=== PATIENT | male | born 1940 | race Caucasian/White ===

== ENCOUNTER 2022-08-10 20:03 | Emergency (ER) | payer MEDICARE, OTHER ==
[2022-08-10 20:13] VITALS: BP 134/77
[2022-08-10] MEDS ORDERED: NIRMATRELVIR/RITONAVIR PREPACK PO STA (20:24)
--- NOTE | 2022-08-10 20:25 | ED Physician Documentation ---
PD HPI URI - Stated complaint Stated Complaint: COVID+ RESP - Chief complaint Chief Complaint: Resp - History obtained from History obtained from: Patient - Additional information Additional information: 82-year-old gentleman with history of hypercholesterolemia, atrial fibrillation on a DOAC, and diabetes developed symptomatic COVID today with chills, body aches, and sore throat. He has no shortness of breath. He has had COVID before. He requests paxlovid. PD PAST MEDICAL HISTORY - Past Medical History Past Medical History: Yes Cardiovascular: Congestive heart failure, Atrial fibrillation Respiratory: COPD - Past Surgical History Past Surgical History: Yes General: Cholecystectomy, Hiatal hernia repair - Present Medications Home Medications: Ambulatory Orders Medication Instructions Recorded Confirmed Apixaban [Eliquis] 08/10/22 Empagliflozin [Jardiance] 10 mg PO 08/10/22 Febuxostat [Uloric] 40 mg PO 08/10/22 Simvastatin [Zocor] 08/10/22 nadoloL [Corgard] 40 mg PO 08/10/22 - Allergies Allergies/Adverse Reactions: Allergies Allergy/AdvReac Type Severity Reaction Status Date / Time Iodinated Contrast Media Allergy Rash Verified 08/10/22 20:14 - Social History Does the pt smoke?: No Smoking Status: Never smoker Does the pt drink ETOH?: Yes ETOH Use: Wine Does the pt have substance abuse?: No - Immunizations Immunizations are current?: Yes - POLST Patient has POLST: No PD ED PE NORMAL - Vitals Vital signs reviewed: Yes - General General: Alert and oriented X 3, No acute distress - Neuro Neuro: Alert and oriented X 3, Normal speech - Psych Psych: Normal mood, Normal affect Results - Vitals Vitals: Vital Signs - 24 hr 08/10/22 20:08 Temperature 37.3 C Heart Rate 97 Respiratory 18 Rate Blood Pressure 134/77 H O2 Saturation 98 Oxygen O2 Source Room air PD Medical Decision Making - ED course ED course: His medications were reviewed and we made recommendations as outlined in the discharge instructions for modification of his medications while on paxlovid. Departure - Departure Disposition: 01 Home, Self Care Clinical Impression: COVID-19 Condition: Good Record reviewed to determine appropriate education?: Yes Instructions: ED Viral Syndrome Comments: Return if you worsen, while you are on the paxlovid, you should stop your simvastatin and take half of the usual dose of your Eliquis.
== END 2022-08-10 20:34 | disposition home or self-care (01) ==
LOC: ED 20:03
DX: U07.1 COVID-19 (principal)
CPT/HCPCS: 99282; 99283; J3490